=== PATIENT | female | born 1945 | race Hispanic/Latino ===

== ENCOUNTER → 2018-03-01 | Outpatient (CLI) | payer OTHER ==
[~2018-03-01] MED LIST: REGADENOSON 0.4 MG/5 ML SYR IV ONE
--- NOTE | 2018-03-02 12:04 | Cardiology Report ---
DATE OF STUDY: March 01, 2018 LEXISCAN NUCLEAR STRESS TEST INDICATIONS: Chest pain. DESCRIPTION OF PROCEDURE: After informed consent, the patient was brought to the stress lab. She was given 11 mCi of technetium 99 Myoview, and myocardial perfusion SPECT images were obtained in horizontal long and short axis and vertical long axis. Subsequently, the patient was given 0.4 mg Lexiscan over 10 seconds. Patient was given 32 mCi of technetium 99 Myoview, and myocardial perfusion SPECT images were obtained in the horizontal long and short axis and vertical long axis. Gated images were also obtained. Patient tolerated the procedure without any complications. REPORT: Baseline EKG shows atrial fibrillation at 77 beats per minute, normal axis, normal intervals, nonspecific ST-T changes. PARAMETERS 1. Resting heart rate is 56 beats. 2. Maximum heart rate 90 beats. 3. Resting blood pressure is 119/76 mmHg. 4. Maximum blood pressure 124/75 mmHg. REASON FOR TERMINATION: End point attained. INTERPRETATION 1. Negative for chest pain. 2. Negative for arrhythmias. 3. Blood pressure response consistent with Lexiscan. 4. No significant ST-T changes seen during Lexiscan infusion compared to baseline. 5. Analysis of SPECT images reveals uniform radioisotope uptake in all segments of the myocardium without any significant perfusion defects. CONCLUSIONS 1. No evidence of significant ischemia or infarction on this study. 2. No wall motion abnormalities. 3. Overall ejection fraction is 77%. Job#: [id number]
== END ==
LOC: NM 08:02
DX: R07.2 Precordial pain (principal)
CPT/HCPCS: 78452; 93017; A9502

== ENCOUNTER → 2018-05-02 | Outpatient (CLI) | payer OTHER ==
--- NOTE | 2018-05-03 12:18 | Diagnostic Imaging Report ---
PROCEDURE: CT CHEST WITHOUT CONTRAST CT scan of the chest WITHOUT intravenous contrast, using standard protocol. TECHNIQUE: The chest was scanned utilizing a multidetector helical scanner from the apex to the level of the adrenal glands. No IV contrast was administered per protocol. Coronal and sagittal multiplanar reformations were obtained. COMPARISON: None. INDICATIONS: COUGH, CHEST PAIN FINDINGS: Lines/tubes: None. Lungs and Airways: The central airways are patent. Mild mosaic attenuation at the lung bases. There is a 3 mm subpleural solid nodule in the left upper lobe on series 3, image 46 and a 3 mm solid pulmonary nodule along the left major fissure on image 75. There is a 4 mm lingular nodule on image 68. There is a 6 mm solid nodule in the right middle lobe on image 66, and two 6 mm nodules in the right upper lobe on images 50 and 51. There is a 3 mm solid nodule in the right lower lobe on image 89. Pleura: The pleural spaces are clear. Heart and mediastinum: The thyroid gland is normal. No significant mediastinal, hilar or axillary lymphadenopathy is seen. Extensive mitral annular calcification. Extensive atherosclerotic calcifications of the coronary vessels, aorta, and branch vessels. There is four vessel cardiomegaly. No evidence of pericardial effusion. Left sided fat containing Bochdalek hernia. The left common carotid artery originates in a common trunk with the brachiocephalic artery. Soft tissues: Normal. Abdomen: Limited views of the upper abdomen show no abnormality within the visualized liver, spleen, pancreas, or kidneys. The adrenal glands are normal. Bones: The visualized bony thorax is within normal limits. IMPRESSION: No acute findings in the thorax. Bilateral solid pulmonary nodules measuring up to 6 mm. Correlation with prior imaging or a follow-up CT in 3-6 months is suggested for further evaluation. Bilateral mosaic attenuation at the lung bases which could reflect air trapping/small airways disease or small vessel disease. Extensive coronary and aortic atherosclerosis. Dictated by: ESTEPHANIA VEGA M.D. on 05/02/2018 at 11:15 Electronically approved by: ESTEPHANIA VEGA M.D. on 05/02/2018 at 11:15
== END ==
LOC: RESP 08:47
PROVIDERS: ATTEND Internal Medicine
DX: R05 Cough (principal)
CPT/HCPCS: 71250; 94060; 94727; 94729